=== PATIENT | female | born 1975 | race Caucasian/White ===

== ENCOUNTER 2019-03-12 04:49 | Day surgery (SDC) | payer OTHER ==
[2019-03-09 10:00] VITALS: BMI 46.4
[2019-03-12] MEDS ORDERED: PROPOFOL 20 ML ONE ×2 (07:32→07:56)
[2019-03-12] MEDS ORDERED: LIDOCAINE HCL/PF 2% SDV 5ML VIAL ONE (07:32)
[2019-03-12] MEDS ORDERED: MIDAZOLAM HCL 2 MG/2 ML SINGLE DOSE VIAL ONE (07:32)
[2019-03-12] MEDS ORDERED: DEXAMETHASONE SOD PHOSPHATE 4 MG/1 ML VIAL ONE (07:32)
[2019-03-12] MEDS ORDERED: KETOROLAC TROMETHAMINE 30 MG/1 ML VIAL ONE (07:32)
--- NOTE | 2019-03-12 07:43 | HP ---
History & Physical Update - Physical Physical: No Change - Assessment Assessment: No Change - Plan Plan: No Change (H&P reviwed , no changes for hysteroscopy resection of submucos myoma, D&C)
[2019-03-12] MEDS ORDERED: ONDANSETRON 4 MG/2 ML VIAL IVPUSH PRN ×2 (08:52→09:01)
[2019-03-12] MEDS ORDERED: oxyCODONE HCL 5 MG TABLET PO PRN ×2 (08:52→09:01)
[2019-03-12] MEDS ORDERED: LACTATED RINGERS SOLUTION 1,000 ML IV SCH (09:00)
[2019-03-12] MEDS ORDERED: IBUPROFEN 600 MG TABLET (FP) PO PRN (09:01)
[2019-03-12] MEDS ORDERED: IBUPROFEN 800 MG/8 ML IJ IVPB PRN (09:01)
--- NOTE | 2019-03-12 09:03 | OP ---
Operative Note - Note: Operative Date: 03/12/19 Pre-Operative Diagnosis: menometrorrhagia, submucos myoma, EM polyp Operation: hysteroscopy , EM polypectomy, resection of submucos myoma Findings: 2 submucos myoma, 2 EM polyp , thicken irregular EM Surgeon: Edward Cornejo Anesthesia: General Specimens Removed: EM polyp. submucos myoma,EMC Estimated Blood Loss (mls): 50 Drains & Tubes with Location: none Blood Volume Replaced (mls): 0 Operative Report Dictated: Yes
[2019-03-12] MEDS ORDERED: ELECTROLYTE-148 SOLN 1,000 ML IV SCH (09:15)
[2019-03-12 10:10] VITALS: TEMP 97.2
[2019-03-12 11:15] VITALS: BP 148/67; PULSE 82
--- NOTE | 2019-03-15 16:48 | PATH ---
Surgical Pathology Report Patient Name: SHAD POON [facility]. Rec. #: [id number] /Age/Gender: 1975 (Age: 43) / F Account: [id number] Location: [facility] SUR[facility]ICAL Taken: 03/12/2019 Received: 03/12/2019 Reported: 03/15/2019 Physicians: Nico Smith M.D. Specimen(s) Received A: MYOMA AND POLYP B: ENDOMETRIAL CURETTINGS C: FIBROID Clinical History Polyp of corpus uteri Final Diagnosis A. MYOMA AND POLYP, EXCISION: ENDOMETRIAL POLYPS. SMOOTH MUSCLE BUNDLES, CONSISTENT WITH SUBMUCOSAL LEIOMYOMA. SEPARATE FRAGMENTS OF PROLIFERATIVE ENDOMETRIUM. B. ENDOMETRIAL CURETTINGS: ENDOMETRIAL POLYP. SEPARATE FRAGMENTS OF PROLIFERATIVE ENDOMETRIUM. SEPARATES FEW FRAGMENTS OF ENDOCERVICAL TISSUE WITH NO SIGNIFICANT PATHOLOGY CHANGE. C. FIBROID, BIOPSY: FRAGMENTS OF PROLIFERATIVE ENDOMETRIUM. Electronically Signed Reed Pastrana M.D. Gross Description A. Received in formalin labeled "myoma and polyp," is a 3.5 x 2.5 x 0.3 cm aggregate of guidry-brown soft tissue fragments. The formalin and filtered and the specimen is entirely submitted in 2 cassettes. B. Received in formalin labeled "endometrial curettings," is a 3.1 x 3.0 x 0.3 cm aggregate of red-brown soft tissue fragments. The formalin is filtered and the specimen is entirely submitted in 2 cassettes. C. Received in formalin labeled "fibroid," is a 0.7 x 0.5 x 0.1 cm aggregate of guidry-brown soft tissue fragments. The formalin is filtered and the specimen is entirely submitted in one cassette. /03/12/2019 saudi/03/12/2019
--- NOTE | 2019-03-16 13:14 | OP ---
DATE OF OPERATION: 03/12/2019 PREOPERATIVE DIAGNOSES: Menometrorrhagia, submucosal myoma, and endometrial polyp. POSTOPERATIVE DIAGNOSES: Menometrorrhagia, submucosal myoma, and endometrial polyp. PROCEDURE: Hysteroscopy, dilation and curettage, and resection of submucous myoma, and endometrial polypectomy. SURGEON: Edward Cornejo MD ANESTHESIA: General. ESTIMATED BLOOD LOSS: 50 mL. OPERATION REPORT: Patient was taken to operating room under adequate general anesthesia in dorsal lithotomy position. Abdomen and perineum and vagina were prepped and draped. Examination under anesthesia revealed external genitalia to be normal, vagina was normal. Cervix was clean, no gross lesion. Uterus was prominent, anteverted. Adnexa, no masses were palpable. Then, with a weighted speculum in the vagina, anterior lip of the cervix was grasped with a single-tooth tenaculum. Cervix was slight dilated with Hegar dilators. Uterine cavity was sounded to 10 cm. Then Symphion hysteroscope was introduced into the uterine cavity. Visualization of endocervical canal appeared to be normal. Uterine cavity was irregular, consistent with 2 submucous myomas, one on the posterior aspect of the fundal uterus and one was anteriorly, and then there were 2 small polyps noted at the right lateral wall of the uterus. Endometrium appeared to be irregular and thick. Symphion resectoscope was introduced and then endometrial polyps first were resected and suctioned. Then the 2 submucous myomas, each about 1 cm protruding into the cavity, were resected to the myometrium and the content was suctioned. Both ostia were visualized. No other abnormality noted. Then the hysteroscope was withdrawn. Cervix was dilated slightly more with the Hegar dilator and then endometrium was curetted. Patient tolerated procedure well, left the OR in good condition. Nico [id number]
== END 2019-03-12 11:05 | disposition home or self-care (01) ==
LOC: JASU-SURG 04:49
PROVIDERS: ATTEND Obstetrics & Gynecology
PROC: 0UDB7ZX Extraction of Endometrium, Via Natural or Artificial Opening, Diagnostic (ICD-10-PCS; 2019-03-12)
PROC: 0UJD8ZZ Inspection of Uterus and Cervix, Via Natural or Artificial Opening Endoscopic (ICD-10-PCS; 2019-03-12)
PROC: 0UB98ZZ Excision of Uterus, Via Natural or Artificial Opening Endoscopic (ICD-10-PCS; principal; 2019-03-12 08:00)
PROC: 0UB97ZX Excision of Uterus, Via Natural or Artificial Opening, Diagnostic (ICD-10-PCS; 2019-03-12 08:00)
DX: N92.1 Excessive and frequent menstruation with irregular cycle (principal); D25.0 Submucous leiomyoma of uterus; N84.0 Polyp of corpus uteri
CPT/HCPCS: 88305-TC; 94760